=== PATIENT | female | born 1935 | race Caucasian/White ===

== ENCOUNTER 2016-06-13 16:37 | Inpatient (IN) | payer MEDICARE ==
[~2016-06-13] VITALS: Ht 170.2 cm; Wt 85.0 kg
[~2016-06-13 16:37] MED LIST: CALCIUM + VITA1 EACH PO; COZAAR100 MG PO; CRESTOR20 MG PO; MEDROL DOSEPAK 24 MG PO; NAMENDA10 MG PO; NORVASC 5 MG TAB5 MG PO; SERTRALINE HCL100 MG PO; SPIRONOLACTONE50 MG PO; TOPROL XL100 MG PO; ZITHROMAX500 MG PO
[2016-06-13 17:40] LABS: HEMOGLOBIN 13.2 gm/dl (12.3-15.3); RED BLOOD COUNT 4.69 M/UL (4.00-5.10); WHITE BLOOD COUNT 8.2 K/UL (4.5-11.0)
[2016-06-13 18:41] LABS: BUN/CREATININE RATIO 13 (0-10)
[2016-06-13] MEDS ORDERED: PLAVIX 75 MG TA75 MG PO (23:39)
[2016-06-14 04:27] LABS: HEMOGLOBIN 12.7 gm/dl (12.3-15.3); RED BLOOD COUNT 4.53 M/UL (4.00-5.10); WHITE BLOOD COUNT 9.3 K/UL (4.5-11.0)
[2016-06-14 06:39] LABS: BUN/CREATININE RATIO 13 (0-10)
[2016-06-16] MEDS ORDERED: VIBRAMYCIN 100100 MG PO (16:23)
[2016-06-16] MEDS ORDERED: DULERA 100 MCG8.8 GM INH (16:28)
[2016-06-16] MEDS ORDERED: MEDROL DOSEPAK 24 MG PO (16:29)
[2016-06-16] MEDS ORDERED: VENTOLIN/PROVE0.5 ML INH (16:32)
[2016-06-16] MEDS ORDERED: TESSALON PERLE100 MG PO (16:34)
== END 2016-06-16 17:20 | disposition home or self-care (01) | DRG 189 ==
LOC: ER1 16:37 → ZEROF 18:59 → PROG CARE 18:59
PROVIDERS: Student in an Organized Health Care Education/Training Program; ADMIT Internal Medicine
DX: J96.21 Acute and chronic respiratory failure with hypoxia (principal); J45.901 Unspecified asthma with (acute) exacerbation; F03.91 Unspecified dementia, unspecified severity, with behavioral disturbance; Z77.22 Contact with and (suspected) exposure to environmental tobacco smoke (acute) (chronic); I10 Essential (primary) hypertension; R00.0 Tachycardia, unspecified; J96.02 Acute respiratory failure with hypercapnia; J47.9 Bronchiectasis, uncomplicated; R73.9 Hyperglycemia, unspecified; T38.0X5A Adverse effect of glucocorticoids and synthetic analogues, initial encounter; Y92.230 Patient room in hospital as the place of occurrence of the external cause; R13.10 Dysphagia, unspecified; J32.9 Chronic sinusitis, unspecified; K21.9 Gastro-esophageal reflux disease without esophagitis; E78.5 Hyperlipidemia, unspecified; Z88.2 Allergy status to sulfonamides; Z88.8 Allergy status to other drugs, medicaments and biological substances; Z79.899 Other long term (current) drug therapy; Z86.73 Personal history of transient ischemic attack (TIA), and cerebral infarction without residual deficits
CPT/HCPCS: 36415; 36600; 71010; 80048; 80053; 82550; 82553; 82803; 83605; 83874; 83880; 84484; 85025; 87040; 92610; 93005; 94640; 94660; 94664; 96374; 96375; 99285; J1650; J1956; J2920; J2930; J7040; Q0162

== ENCOUNTER → 2016-07-08 | Outpatient (CLI) | payer MEDICARE ==
[~2016-07-08] MED LIST changes: +DULERA 100 MCG8.8 GM INH; +PLAVIX 75 MG TA75 MG PO; +TESSALON PERLE100 MG PO; +VENTOLIN/PROVE0.5 ML INH; +VIBRAMYCIN 100100 MG PO
== END ==
LOC: HEART 5 15:52
DX: R06.02 Shortness of breath (principal); M19.90 Unspecified osteoarthritis, unspecified site; R94.2 Abnormal results of pulmonary function studies
CPT/HCPCS: 94060

== ENCOUNTER 2020-06-01 16:58 | Emergency (ER) | payer MEDICARE, OTHER ==
[2020-06-01] MEDS ORDERED: KEFLEX CAP 250250 MG PO (21:53)
== END 2020-06-02 00:43 | disposition home or self-care (01) ==
LOC: ER1 16:58
DX: L03.115 Cellulitis of right lower limb (principal); I10 Essential (primary) hypertension; Z95.1 Presence of aortocoronary bypass graft
CPT/HCPCS: 73590; 73610; 73630; 99283

== ENCOUNTER 2020-08-26 10:53 | Emergency (ER) | payer MEDICARE, OTHER ==
[~2020-08-26 10:53] MED LIST changes: +KEFLEX CAP 250250 MG PO
[2020-08-26 12:46] LABS: HEMOGLOBIN 13.5 gm/dl (12.3-15.3); RED BLOOD COUNT 4.48 M/UL (4.00-5.10); WHITE BLOOD COUNT 9.1 K/UL (4.5-11.0)
[2020-08-26 13:10] LABS: BUN/CREATININE RATIO 19 (0-10)
[2020-08-26] MEDS ORDERED: CEFPODOXIME PR200 MG PO (19:18)
== END 2020-08-26 19:45 | disposition home or self-care (01) ==
LOC: ER1 10:53
PROVIDERS: Student in an Organized Health Care Education/Training Program
DX: N39.0 Urinary tract infection, site not specified (principal); Z20.822 Contact with and (suspected) exposure to COVID-19; I10 Essential (primary) hypertension; Z90.710 Acquired absence of both cervix and uterus
CPT/HCPCS: 0240U; 36600; 51701; 70450; 71045; 71260; 80053; 81001; 82550; 82553; 82803; 83605; 83690; 83735; 83874; 83880; 84100; 84484; 85025; 86140; 93005; 94664; 96374; 99285; J0696; Q9965